=== PATIENT | female | born 1995 | race Caucasian/White ===

== ENCOUNTER 2018-08-19 16:23 | Inpatient (IN) | payer OTHER ==
[~2018-08-19] VITALS: Ht 152.4 cm; Wt 57.4 kg
[2018-08-19 16:58] VITALS: Ht 152.4 cm; Wt 57.4 kg
[2018-08-19 16:59] VITALS: BP 109/70
[2018-08-19] MEDS ORDERED: PREN1TAB71 PO (17:02)
[2018-08-19] MEDS ORDERED: LACTATED RINGER'S 1,000 ML IV ONE (17:30)
[2018-08-19] MEDS ORDERED: AL HYDROX/MG HYDROX/SIMETH 30 ML CUP PO PRN (21:00)
[2018-08-19] MEDS ORDERED: ACETAMINOPHEN 325 MG TAB PO PRN (21:00)
[2018-08-19] MEDS: LACTATED RINGER'S 1,000 ML IV SCH (21:03)
--- NOTE | 2018-08-20 00:23 | HP ---
Date/Time of Note Date/Time of Note DATE: 08/20/18 TIME: 00:19 OB - History Hx of Present Free Text/Dictation 08/19/2018 : 1 Para: 0 Spontaneous : 0 Therapeutic : 0 Care: Good Care Other Concerns: 23-year-old with IUP at 38 weeks and 5 days currently being followed with biweekly NST due to low Amos a day. Noted to have midline low ACLLI, 5.1 in today's ultrasound. She was sent to triage for observation and hydration and repeat CALLI. Repeat CALLI showed 8.1 after hydration however due to rare episodes of variable patient was admitted for prolonged observation as well as repeat CALLI and BPP in a.m. Past Family/Social History * Past Medical, Surgical, Family and Obstetric Histories reviewed from chart. OB Admission Exam Vital Signs Vital Signs Vital Signs Date Temp Pulse Resp B/P (MAP) Pulse Ox O2 O2 Flow FiO2 Time Delivery Rate 08/19/18 98.5 109/70 Room Air 16:59 (83) Physical Exam HEENT: WNL Abdomen: WNL Cervical Dilatation: None Effacement: 0% Membranes: Intact Accelerations: Accelerations Present Decelerations: Variable Decelerations Varibility: Moderate Contractions on Admission: None OB Assessment/Plan Other Assessment: IUP at 38 weeks and 5 days Low Amos a Borderline low CALLI, improved after hydration Rare episodes of variable deceleration. Patient will be admitted for prolonged observation and repeat CALLI and BPP again in a.m. Plan of care discussed with the RN and with patient LALITHA PARKER MD Aug 20, 2018 00:23
[2018-08-20] MEDS: LACTATED RINGER'S 1,000 ML IV SCH ×4 (02:01→20:47)
[2018-08-20] MEDS: PRENATAL VITAMIN PO SCH (08:38)
--- NOTE | 2018-08-20 17:04 | QN ---
Documentation Comment I spoke with Dr. Nuno and reported her greg 6.9. Recommends to continue to observe patient in house and reevaluate greg tomorrow. At this time she recommends delivery if greg is less than 5. GRAYSON GARG MD Aug 20, 2018 17:04
[2018-08-21] MEDS: LACTATED RINGER'S 1,000 ML IV SCH ×3 (04:06→18:57)
[2018-08-21] MEDS: PRENATAL VITAMIN PO SCH (09:09)
[2018-08-21] MEDS ORDERED: IBUPROFEN 600 MG TAB PO PRN (10:30)
[2018-08-21] MEDS ORDERED: MISOPROSTOL 200 MCG TAB PR PRN (10:30)
[2018-08-21] MEDS ORDERED: BUTORPHANOL 2 MG INJ IV PRN (10:30)
[2018-08-21] MEDS ORDERED: METHYLERGONOVINE 0.2 MG INJ IM PRN (10:30)
[2018-08-21] MEDS ORDERED: LIDOCAINE 1% (MPF) 30 ML INJ INJ PRN (10:30)
[2018-08-21] MEDS ORDERED: OXYTOCIN 30 UNITS/LR 500 ML IV SCH ×2 (10:30)
[2018-08-21] MEDS ORDERED: OXYCODONE/ACETAMINOPHEN (5/325) TAB PO PRN (10:30)
[2018-08-21] MEDS ORDERED: OXYTOCIN 30 UNITS/LR 500 ML IV PRN (10:30)
[2018-08-21] MEDS ORDERED: CARBOPROST 250 MCG INJ IM PRN (10:30)
[2018-08-21] MEDS: MISOPROSTOL 50 MCG CAPSULE PO PRN ×3 (11:23→21:32)
[2018-08-22] MEDS: LACTATED RINGER'S 1,000 ML IV SCH ×4 (01:54→17:35)
[2018-08-22] MEDS: MISOPROSTOL 50 MCG CAPSULE PO PRN (06:43)
[2018-08-22] MEDS ORDERED: OXYTOCIN 30 UNITS/LR 500 ML IV SCH ×2 (10:00→21:23)
[2018-08-22] MEDS ORDERED: FENTAnyl 2MCG/ML-ROPIV 0.2% 100 ML ONE (13:39)
--- NOTE | 2018-08-22 13:51 | PREAC ---
Date/Time of Note Date/Time of Note DATE: 08/22/18 TIME: 13:49 Anesthesia Eval and Record Evaluation Time Pre-Procedure Interview DATE: 08/22/18 TIME: 13:12 Age 23 Sex female NPO: 8 hrs Preoperative diagnosis iup @ 38.5 wks., , labor Planned procedure patric Past Medical History Past Medical History: Includes : : (1), Para: (0) Surgery & Anesthesia Issues No known issue Meds Anticoagulation: No Beta Vidal within 24 hr: No Reason Beta Vidal not given: Pt. not on B-Vidal Reported Medications Vit No.130/Iron/FA ( Tablet) 1 Each Tablet, 1 EACH PO 08/19/18 Current Medications Acetaminophen (Tylenol Tab) 650 mg Q4H PRN PO .PAIN OR TEMP; Start 08/19/18 at 21:00 Lactated Ringer's 1,000 ml @ 125 mls/hr Q8H IV Last administered on 08/22/18at 13:30; Admin Dose 125 MLS/HR; Start 08/21/18 at 10:07 Butorphanol Tartrate (Stadol) 2 mg Q2H PRN IV .PAIN Last administered on 08/22/18at 02:02; Admin Dose 2 MG; Start 08/21/18 at 10:30 Lidocaine (Xylocaine 1% (Mpf)) 30 ml ONCE PRN INJ .EPISIOTOMY; Start 08/21/18 at 10:30 Oxytocin/Lactated Ringer's 500 ml @ 500 mls/hr ONCE POST IV ; Start 08/21/18 at 10:30 Oxytocin/Lactated Ringer's 500 ml @ 125 mls/hr POST IV ; Start 08/21/18 at 10:30 Ibuprofen (Motrin) 600 mg ONCE PRN PO .PAIN 1-5; Start 08/21/18 at 10:30 Oxycodone/ Acetaminophen (Percocet (5/ 325)) 2 tab ONCE PRN PO .PAIN 6-10; Start 08/21/18 at 10:30 Oxytocin/Lactated Ringer's 500 ml @ 0 mls/hr ONCE PRN IV .VAGINAL BLEEDING; Start 08/21/18 at 10:30 Methylergonovine Maleate (Methergine) 0.2 mg ONCE PRN IM .VAGINAL BLEEDING; Start 08/21/18 at 10:30 Carboprost Tromethamine (Hemabate) 250 mcg ONCE PRN IM .VAGINAL BLEEDING; Start 08/21/18 at 10:30 Misoprostol (Cytotec) 1,000 mcg ONCE PRN DC .VAGINAL BLEEDING; Start 08/21/18 at 10:30 Misoprostol (Cytotec 50 Mcg Capsule) 50 mcg Q4 PRN PO LABOR INDUCTION Last administered on 08/22/18at 06:43; Admin Dose 50 MCG; Start 08/21/18 at 11:00 Oxytocin/Lactated Ringer's 500 ml @ 0 mls/hr Q0M IV Last administered on 08/22/18at 10:55; Admin Dose 1 MLS/HR; Start 08/22/18 at 10:00 Meds reviewed: Yes Allergies Coded Allergies: No Known Drug Allergies (Verified Allergy, Unknown, 08/19/18) Allergies Reviewed: Yes Labs/Studies Labs Reviewed: Reviewed by anesthesiologist Result Diagram: 08/21/18 1153 test: Positive Studies: ECG (n/a), CXR (n/a) Pre-procedure Exam Last vitals Vital Signs Date Temp Pulse Resp B/P (MAP) Pulse Ox O2 O2 Flow FiO2 Time Delivery Rate 08/19/18 98.5 109/70 Room Air 16:59 (83) Airway: Adequate mouth opening, Adequate thyromental dist Mallampati: Mallampati II Teeth: Normal Lung: Normal Heart: Normal ASA Physical Status ASA physical status: 2 Emergency: E Planned Anesthetic Neuraxial: Epidural Planned Pain Management Local by surgeon Pre-operative Attestations Prior to commencing anesthesia and surgery, the patient was re-evaluated, there was verification of: *The patient's identity *The results of appropriate recent lab work and preoperative vital signs *The above evaluation not changing prior to induction *Anesthetic plan, risk benefits, alternative and complications discussed with patient/family; questions answered; patient/family understands, accepts and wis hes to proceed. Environmental Coordinator used ASHLEIGH KAHN MD Aug 22, 2018 13:51
--- NOTE | 2018-08-22 13:52 | OPPN ---
Date/Time of Note Date/Time of Note DATE: 08/23/18 TIME: 14:00 Anesthesia Follow up Anesthesia Follow up Last documented vital signs Vital Signs Date Temp Pulse Resp B/P (MAP) Pulse Ox O2 O2 Flow FiO2 Time Delivery Rate 08/19/18 98.5 109/70 Room Air 16:59 (83) Respiratory function: WNL Cardiovascular function: WNL ASHLEIGH KAHN MD Aug 22, 2018 13:52
[2018-08-22] MEDS ORDERED: NALOXONE (0.4 MG/ML) INJ IV PRN (14:00)
--- NOTE | 2018-08-22 21:21 | LDN ---
Date/Time of Note Date/Time of Note DATE: 08/22/18 TIME: 21:19 Delivery Summary Placenta Delivered: Spontaneously Meconium: none Episiotomy: No Perineal laceration: 1 Laceration repair: 2nd degree perineal laceration repaired with 3-0 chromic Anesthesia type: Epidural Estimated blood loss: 200 Sponge & Needle done & correct: Yes All needle counts correct: Yes Any foreign bodies felt in the: No Delivery Information Sex Sex: male Apgars 1 Minute: 9 5 Minute: 9 Suctioning Nose & mouth suctioned at [place]: Yes Umbilical Cord Umbilical cord with: 3 Vessels Cord presentations: no nuchal cord Cord Blood was obtained: Yes Mother & Baby Disposition Disposition Mom & Baby to Maternity; Good: Yes KARTIK PLAZA Aug 22, 2018 21:21
[2018-08-22] MEDS ORDERED: HYDROCODONE/APAP (5/325) TAB PO PRN ×2 (21:30)
[2018-08-22] MEDS ORDERED: DIBUCAINE 1% 30 GM OINT TOP PRN (21:30)
[2018-08-22] MEDS ORDERED: METHYLERGONOVINE 0.2 MG INJ IM PRN (21:30)
[2018-08-22] MEDS ORDERED: BENZOCAINE 20% 56 ML SPRAY TOP PRN (21:30)
[2018-08-22] MEDS ORDERED: OXYTOCIN 30 UNITS/LR 500 ML IV PRN (21:30)
[2018-08-22] MEDS ORDERED: WITCH HAZEL/GLYCERIN PAD PR PRN (21:30)
[2018-08-22] MEDS ORDERED: CARBOPROST 250 MCG INJ IM PRN (21:30)
[2018-08-22] MEDS ORDERED: MISOPROSTOL 200 MCG TAB PR PRN (21:30)
[2018-08-22] MEDS ORDERED: LANOLIN HPA 1 PKT TOP PRN (21:30)
[2018-08-23] VITALS (7 sets, daily range): BP systolic 95–122; BP diastolic 57–77; PULSE 57–78; RESP 16–20
[2018-08-23] MEDS: LACTATED RINGER'S 1,000 ML IV* SCH ×4 (00:47→21:46)
[2018-08-23] MEDS: IBUPROFEN 600 MG TAB PO SCH ×5 (05:53→23:34)
[2018-08-23] MEDS: LACTATED RINGER'S 1,000 ML IV SCH ×2 (10:07→21:47)
--- NOTE | 2018-08-23 10:31 | PN ---
Date/Time of Note Date/Time of Note DATE: 08/23/18 TIME: 10:30 OB Subjective Subjective Subjective No complaints OB Objective Objective Objective Gen: NAD Abd: FF OB Assessment/Plan Other Assessment: PPD1 Other plan: -continue routine care -anticipate discharge home tomorrow KARTIK PLAZA Aug 23, 2018 10:31
[2018-08-24] MEDS: LACTATED RINGER'S 1,000 ML IV SCH ×2 (02:07→07:27)
[2018-08-24 04:07] VITALS: BP 112/70; PULSE 70; RESP 18
[2018-08-24] MEDS: LACTATED RINGER'S 1,000 ML IV* SCH ×2 (05:23→07:27)
[2018-08-24] MEDS: IBUPROFEN 600 MG TAB PO SCH ×2 (06:00→12:00)
[2018-08-24] MEDS: FENTAnyl 2MCG/ML-ROPIV 0.2% 100 ML BAG EPI SCH ×2 (07:27→07:28)
[2018-08-24 08:00] VITALS: BP 104/62; PULSE 76; RESP 20
--- NOTE | 2018-08-24 08:36 | PD.PPDC ---
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
--- NOTE | 2018-08-24 08:39 | DS ---
Date/Time of Note Date/Time of Note DATE: 08/24/18 TIME: 08:38 Obstetrical Discharge Record Final Diagnosis Final Diagnosis: Term delivered Vaginal Delivery Obstetrical Delivery: Spontaneous, Laceration, Repaired Complications Other (oligo) Augmentation: No Induction: Yes Condition on Discharge Physical Assessment Last Vitals: stable afebrile Voiding: Yes Bowel Movement: Yes Breast: Soft, non-tender, Filling Fundus: Firm Abdomen and Incision: soft nt Calf Tenderness: No Patient Condition: GRAYSON Lechuga MD Aug 24, 2018 08:39
[2018-08-24] MEDS ORDERED: MEASLES,MUMPS,RUBELLA VACCINE INJ SC* ONE (09:00)
[2018-08-24] MEDS ORDERED: DIPHTH/TET/ACEL PERTUSS (ADULT) 0.5 ML VIAL IM* ONE (09:00)
[2018-08-24] MEDS ORDERED: VARICELLA VACCINE LIVE/PF 1,350 UNIT/0.5 ML ML SC* ONE (09:00)
--- NOTE | 2018-08-24 23:04 | NSTRPT ---
NST Information Datetime Report Generated by CPN: 08/24/2018 23:03 Datetime: 08/19/2018 14:33 NST Information EGA: 37.6 Patient States Movement: Present Variability: Moderate 6-25bpm Accelerations: 15X15 FHR Category: Category I Electronically Signed By E-Signature: with User ID: [id number] Datetime: 08/19/2018 14:30 Test Number: 1 Time on Monitor: 08/19/2018 14:55 Time off Monitor: 08/19/2018 15:16 NST Duration (Min): 21 Reason for NST: Low JESSICA Test and Monitor Explained: Monitor Explained; Test Explained; Verbalized Understanding Pulse: 76 Resp: 18 SBP: 101 DBP: 62 Test Evaluation NST Interventions: Reposition Patient Patient States Movement: Present Contraction Frequency: NONE FHR Baseline : 135 Variability: Moderate 6-25bpm Accelerations: 15X15 Decelerations: None FHR Category: Category I NST Results: Reactive Provider Notified: Dr Nuno recommends pt go to hospital for IV hydration Comments: PT TO U/S greg 5.[address] gabriel informed of Dr warren
== END 2018-08-24 15:21 | disposition home or self-care (01) | DRG 807 ==
LOC: OBT 16:23 → L-D 16:24 → OBT 20:15 → L-D 08-20 03:02 → PP1 08-23 00:24
PROVIDERS: ADMIT Obstetrics & Gynecology; ATTEND Obstetrics & Gynecology
PROC: 10E0XZZ Delivery of Products of Conception, External Approach (ICD-10-PCS; principal; 2018-08-22)
PROC: 0KQM0ZZ Repair Perineum Muscle, Open Approach (ICD-10-PCS; 2018-08-22)
PROC: 3E033VJ Introduction of Other Hormone into Peripheral Vein, Percutaneous Approach (ICD-10-PCS; 2018-08-22)
DX: O70.1 Second degree perineal laceration during delivery (principal); Z37.0 Single live birth; Z3A.38 38 weeks gestation of pregnancy
CPT/HCPCS: 36415; 76815; 76816; 76818; 85025; 85610; 85730; 86592; 86850; 86900; 86901; 87340; 90716; 96360; 96361; A4310; G0463; J0595; J2590; J3010; J7120